=== PATIENT | male | born 1985 | race Caucasian/White ===

== ENCOUNTER → 2017-05-05 14:34 | Outpatient (CLI) | payer BC | END | disposition home or self-care (01) | LOC: D.MRI 14:30 | DX: R42 Dizziness and giddiness (principal); R41.0 Disorientation, unspecified; R51 Headache; H53.8 Other visual disturbances; R20.0 Anesthesia of skin ==

== ENCOUNTER → 2017-06-03 10:27 | Outpatient (CLI) | payer BC ==
--- NOTE | 2017-06-06 07:02 | EEG ---
PATIENT:PARISA ROLDAN DATE OF SERVICE: 06/03/17 MEDICAL RECORD: [id number] DATE OF : [birth year] LOCATION: [facility] ADMISSION DATE: 06/03/17 REFERRING PHYSICIAN: INTERPRETING PHYSICIAN: GILLES DA SILVA MD DATE OF SERVICE: 06/03/[address] Pena as an outpatient. ELECTROENCEPHALOGRAM NUMBER: [id number]. DATE OF EXAMINATION: 06/03/2017 at 11:30 a.m. DATE OF : 1985 TECHNICAL DATA: This electroencephalographic recording consists of approximately 20 minutes of data collection utilizing the international 10/20 system of electrode placement and both referential and non-referential montages. Sixteen channels of electrocerebral recording are accompanied by a 17th channel dedicated to the electrocardiographic rhythm and 2 channels of electromyographic recording. Recording is performed in the awake and drowsy states utilizing activation by hyperventilation and photic stimulation. ELECTROENCEPHALOGRAPHIC DATA: The awake state comprises approximately 60% of the recorded electrocerebral activity. Electromyographic artifact is prominent and rapid eye movements are seen. The posterior dominant background consists of a symmetric, semi-arrhythmic, waxing and waning 10-11 Hz alpha activity which is suppressed by eye opening. The drowsy state comprises the remaining portion of the recorded electrocerebral activity. Electromyographic artifact is only mildly diminished. Rapid eye movements are not seen. The posterior dominant background is relatively suppressed. Also seen is an intermittent irregular generalized and symmetric 2-3 Hz delta slowing, which occurs for periods of 1-2 seconds approximately once every 1-2 pages. No abnormal or focal slowing is identified. No epileptiform discharges are seen. Hyperventilation and photic stimulation induced no abnormal change in the recorded electrocerebral activity. INTERPRETATION: Normal (awake and drowsy). This is a normal electroencephalographic recording. TRANSINT:[id number] Voice Confirmation ID: [id number] DOCUMENT ID: [id number] ELECTROENCEPHALOGRAM REPORT [id number] PARISA ROLDAN GILLES DA SILVA MD at 0702 CC: [id number] DICTATION DATE: 06/04/17 0657 CURTAIN ROLLER ASSEMBLER: 06/04/17 0738 DEP CLI 06/03/17 [place] [address]
== END | disposition home or self-care (01) ==
LOC: D.CN 10:00
DX: R55 Syncope and collapse (principal)

== ENCOUNTER → 2017-06-17 09:19 | Outpatient (CLI) | payer BC ==
--- NOTE | 2017-06-18 16:56 | EC ---
PATIENT:PARISA ROLDAN DATE OF SERVICE: 06/17/17 SEX: M MEDICAL RECORD: [id number] DATE OF : [birth year] LOCATION:[facility] AGE OF PATIENT: 31 ADMISSION DATE: 06/17/17 REFERRING PHYSICIAN: INTERPRETING PHYSICIAN: MAX MCKEON MD ECHOCARDIOGRAM REPORT ECHO CHARGES 4 ECHO COMPLETE CLINICAL DIAGNOSIS: SYNCOPE ASSESS WITH BUBBLE STUDY ECHOCARDIOGRAPHIC MEASUREMENTS (adult normal given) AC root (d.<3.7cm) 3.5 cm LV Septum d (<1.2 cm> 1.2 cm Valve Excursion 1.9 cm LV Septum (systole) 1.5 cm Left Atria (s.<4.0cm> 3.6 cm LVPW d(<1.2cm) 1.1 cm RV (d.<2.3cm) 3.6 cm LVPW (sytole) 1.5 cm LV diastole(<5.6CM) 4.5 cm MV E-F(>70mm/sec) cm LV systole 2.8 cm LVOT Diameter 2.1 cm MV exc.(>10mm) 1.9 cm Est.ejection fraction (50-75%) % Pericardial Effusion N DOPPLER: LVIT cm/sec A 59.0 cm/sec E 86.0 cm/sec LA cm/sec RVSP 36 mmHg LVOT 130 cm/sec AOP1/2T m/s Asc. Ao 149 cm/sec RVOT 88 cm/sec RA cm/sec PA 113 cm/sec AV Gradient Peak 8.89 mmHg AV Mean 4.26 mmHg AV Area 3.1 cm MV Gradient Peak 2.89 mmHg MV Mean 1.13 mmHg MV Area cm COMMENTS: Health Program Manager: Alana TEE Planisher: Alana Peace TAPE# PACS DATE OF SERVICE: 06/17/2017 PROCEDURE: Echocardiogram FINDINGS: 1. Left ventricular chamber size is within normal limits. Left ventricular systolic function is normal. Overall ejection fraction estimated at 60%. 2. Left atrium, right atrium, and right ventricular chamber sizes are within normal limits. 3. Valvular structures have normal structure and motion. ECHOCARDIOGRAM REPORT [id number] PARISA ROLDAN 4. Doppler interrogation only reveals mild tricuspid regurgitation. No other valvular insufficiency or stenosis, pulmonary systolic pressure is normal estimated at 36 mmHg. 5. No evidence of pericardial effusion or left ventricular thrombus. 6. Bubble study was performed. There is no evidence of left to right or right to left shunt. TRANSINT:[id number] Voice Confirmation ID: [id number] DOCUMENT ID: [id number] MAX MCKEON MD at 1656 CC: [id number] DICTATION DATE: 06/17/17 1331 COUNTY AGENT: 06/17/17 1341 DEP CLI 06/17/17 [address] [place] [address]
[2017-06-28 13:13] LABS: 5HIAA - UR 0.5 mg/L (Undefined)
== END | disposition home or self-care (01) ==
LOC: D.ECHO 09:19
PROVIDERS: Psychiatry & Neurology Neurology
DX: R55 Syncope and collapse (principal)

== ENCOUNTER 2018-03-17 15:40 | Emergency (ER) | payer BC ==
[~2018-03-17] VITALS: Ht 188 cm; Wt 92.7 kg
[2018-03-17 15:47] VITALS: Ht 188 cm; Wt 92.7 kg
[2018-03-17 16:12] LABS: BASOPHILS 0.2 % (0-2); EOSINOPHILS 0.4 % (0-7); HEMATOCRIT 45.1 % (42.0-54.0); HEMOGLOBIN 15.9 g/dL (13.5-17.5); IMMATURE GRANULOCYTES 0.3 % (0-5); MCHC 35.3 g/dL (31.0-37.0); MCV 82.3 fL (80.0-100.0); MONOCYTES 5.4 % (2-11); NEUTROPHILS 63.7 % (40-80); PLATELET COUNT 220 10x3/uL (130-400); RBC 5.48 10x6/uL (4.20-6.10); RDW 12.8 % (11.5-14.5); WBC 12.9 10x3/uL (4.8-10.8)
[2018-03-17 16:20] LABS: COLOR STRAW (YELLOW)
[2018-03-17 16:21] LABS: APPEARANCE CLEAR (CLEAR); BILIRUBIN NEGATIVE (NEGATIVE); GLUCOSE NEGATIVE (NEGATIVE); KETONE NEGATIVE (NEGATIVE); NITRITE NEGATIVE (NEGATIVE); PROTEIN NEGATIVE (NEGATIVE); UROBILINOGEN NORMAL (NORMAL)
[2018-03-17 16:52] LABS: UDS - AMPHET NEGATIVE QUAL (NEGATIVE); UDS - BARB NEGATIVE QUAL (NEGATIVE); UDS - BENZO NEGATIVE QUAL (NEGATIVE); UDS - COCAINE NEGATIVE QUAL (NEGATIVE); UDS - OPIATE POSITIVE QUAL (NEGATIVE); UDS - PCP NEGATIVE QUAL (NEGATIVE); UDS - THC NEGATIVE QUAL (NEGATIVE)
[2018-03-17 16:59] LABS: ALBUMIN 4.1 g/dL (3.4-5.0); ALKALINE PHOSPHATASE 94 U/L (46-116); ALT (SGPT) 22 U/L (10-68); BILIRUBIN - TOTAL 0.35 mg/dL (0.2-1.3); CALC OSMOLALITY 280 mosm/kg (275-300); CALCIUM 9.2 mg/dL (8.5-10.1); CARBON DIOXIDE 29.3 mmol/L (21.0-32.0); CHLORIDE - SERUM 102 mmol/L (98-107); CREATININE - SERUM 1.1 mg/dL (0.6-1.3); GLUCOSE 75 mg/dL (74-106); PROTEIN - SERUM 8.2 g/dL (6.4-8.2); SODIUM 141 mmol/L (136-145); UREA NITROGEN 14 mg/dL (7-18); eGFR NON AFRICAN AMERICAN 81 mL/min (90-120)
[2018-03-17 19:26] VITALS: BP 113/69
== END 2018-03-17 19:22 | disposition home or self-care (01) ==
LOC: D.ER 15:40
PROVIDERS: Family Medicine
DX: M79.1 Myalgia (principal); G40.909 Epilepsy, unspecified, not intractable, without status epilepticus; F17.200 Nicotine dependence, unspecified, uncomplicated

== ENCOUNTER 2019-04-11 13:01 | Inpatient (IN) | payer BC ==
[~2019-04-11] VITALS: Ht 188 cm; Wt 81.6 kg
[2019-04-11 15:22] VITALS: BP 107/68
--- NOTE | 2019-04-11 15:46 | MORECARE ---
CASE MANAGEMENT DISCHARGE SUMMARY PATIENT: PARISA RIVAS UNIT: [id number] ADM DATE: 04/11/19 AGE: 33 : [birth year] SEX: M ROOM/BED: D.1202 AUTHOR: JUAN CARLOS JONES PHYSICIAN: REFERRING PHYSICIAN: ALENA QUESADA DO DATE OF SERVICE: 04/11/19 Discharge Plan Patient Name: PARISA RIVAS [facility] [facility] 1985 Planned Disposition: Home Anticipated Discharge Date: 04/13/19 Discharge Date: Expected LOS: 2 Initial Reviewer: [email or web address] Initial Review Date: 04/11/2019 Generated: 04/11/19 4:46 pm DCPIA - Discharge Planning Initial Assessment Updated by [email or web address]: Hollie Baker on 04/11/19 3:45 pm * Is the patient Alert and Oriented? Yes * How many steps to enter\exit or inside your home? 10 * PCP Dr. Pena * Pharmacy [facility] * Preadmission Environment Home with Family * ADLs Independent * Equipment None * Other Equipment Cane * List name and contact numbers for known caregivers / representatives who currently or will assist patient after discharge: Qing Rivas - - [phone] * Verbal permission to speak to the caregivers and representatives has been obtained from the patient. Yes * Community resources currently utilized None * Additional services required to return to the preadmission environment? No * Can the patient safely return to the preadmission environment? Yes * Has this patient been hospitalized within the prior 30 days at any hospital? No Patient Name: PARISA RIVAS Page [id number] at 1546 All edits/amendments must be made on the electronic document DICTATION DATE: 04/11/19 154 FOUNDRY SUPERVISOR: ANTHONY 04/11/19 154 RPT#: [id number] DC DATE: STATUS: ADM IN [facility] [address] [place] [address] END OF REPORT
--- NOTE | 2019-04-11 15:53 | MORECARE ---
CASE MANAGEMENT DISCHARGE SUMMARY PATIENT: PARISA RIVAS UNIT: [id number] ADM DATE: 04/11/19 AGE: 33 : [birth year] SEX: M ROOM/BED: D.1202 AUTHOR: KAREN,DOC PHYSICIAN: REFERRING PHYSICIAN: ALENA QUESADA DO DATE OF SERVICE: 04/11/19 Discharge Plan Patient Name: PARISA RIVAS Facility: [facility]:[place] : 1985 Planned Disposition: Home Anticipated Discharge Date: 04/13/19 Discharge Date: Expected LOS: 2 Initial Reviewer: [email or web address] Initial Review Date: 04/11/2019 Generated: 04/11/19 4:53 pm Comments DCP- Discharge Planning Updated by [email or web address]: Hollie Baker on 04/11/19 2:[address] Patient Name: PARISA RIVAS Admission Status: Elective Accout number: [id number] Admission Date: 04-11-2019 : 1985 Admission Diagnosis: Attending: ALENA QUESADA Current LOS: 1 Anticipated DC Date: 04-13-2019 Planned Disposition: Home Primary Insurance: [employer] OUT OF STATE Discharge Planning Communication: DC PLAN: Return home with independently. DC NEEDS: Unsure of dc needs at this time. CM met with patient to complete initial dc planning assessment. CM educated patient on the CM role and verbal consent given by patient to complete assessment. CM verified patient's address, phone number, and emergency contact phone numbers. Patient lives at home with his and reports he is independent in his meds. At discharge patient plans to return home and feels this is a safe discharge. CM discussed availability of home health, rehab services, and medical equipment. Patient denied known discharge needs at this time. Patient reports he will drive himself if able or his will transport him home at time of discharge. CM will continue to follow and will assist as needed with dc plans/needs. Lens Blank Gauger: Hollie Baker RN, [facility] DCPIA - Discharge Planning Initial Assessment Updated by [email or web address]: Hollie Baker on 04/11/19 3:45 pm * Is the patient Alert and Oriented? Yes * How many steps to enter\exit or inside your home? 10 * PCP Dr. Pena * Pharmacy [facility] * Preadmission Environment Home with Family * ADLs Independent * Equipment None * Other Equipment Cane * List name and contact numbers for known caregivers / representatives who currently or will assist patient after discharge: Qing Rivas - - [phone] * Verbal permission to speak to the caregivers and representatives has been obtained from the patient. Yes * Community resources currently utilized None * Additional services required to return to the preadmission environment? No * Can the patient safely return to the preadmission environment? Yes * Has this patient been hospitalized within the prior 30 days at any hospital? No Last DP export: 04/11/19 2:46 p Patient Name: PARISA RIVAS Page [id number] at 1553 All edits/amendments must be made on the electronic document DICTATION DATE: 04/11/191552 WREATH INSPECTOR: ANTHONY 04/11/191552 RPT#: [id number] DC DATE: STATUS: ADM IN [facility] [address] [place] [address] END OF REPORT
[2019-04-11 17:32] LABS: ALBUMIN 3.5 g/dL (3.4-5.0); BILIRUBIN - DIRECT 0.05 mg/dL (0.00-0.30); BILIRUBIN - INDIRECT 0.46 mg/dL (0.00-1.00); BILIRUBIN - TOTAL 0.51 mg/dL (0.2-1.3); CALCIUM 8.8 mg/dL (8.5-10.1)
[2019-04-11 19:47] VITALS: BP 100/66
[2019-04-11 23:46] VITALS: BP 97/57
[2019-04-12 04:00] VITALS: BP 96/67
[2019-04-12 06:25] LABS: ALBUMIN 3.1 g/dL (3.4-5.0); ALKALINE PHOSPHATASE 81 U/L (46-116); ALT (SGPT) 24 U/L (10-68); BILIRUBIN - TOTAL 0.58 mg/dL (0.2-1.3); CALC OSMOLALITY 284 mosm/kg (275-300); CALCIUM 8.8 mg/dL (8.5-10.1); CARBON DIOXIDE 26.2 mmol/L (21.0-32.0); CHLORIDE - SERUM 106 mmol/L (98-107); CREATININE - SERUM 0.9 mg/dL (0.6-1.3); MAGNESIUM - SERUM 2.5 mg/dL (1.8-2.4); POTASSIUM - SERUM 4.1 mmol/L (3.5-5.1); PROTEIN - SERUM 6.1 g/dL (6.4-8.2); SODIUM 141 mmol/L (136-145); UREA NITROGEN 7 mg/dL (7-18); eGFR NON AFRICAN AMERICAN > 90 mL/min (90-120)
[2019-04-12 06:27] LABS: GLUCOSE 208 mg/dL (74-106)
[2019-04-12 07:49] LABS: BASOPHILS 0.2 % (0-2); EOSINOPHILS 1.3 % (0-7); HEMATOCRIT 40.7 % (42.0-54.0); IMMATURE GRANULOCYTES 0.1 % (0-5); LYMPHOCYTES 34.2 % (15-50); MCH 29.2 pg (26.0-34.0); MCHC 34.4 g/dL (31.0-37.0); MCV 84.8 fL (80.0-100.0); MEAN PLATELET VOLUME 12.3 fL (7.4-10.4); MONOCYTES 7.4 % (2-11); NEUTROPHILS 56.8 % (40-80); PLATELET COUNT 201 10x3/uL (130-400); RDW 12.9 % (11.5-14.5); WBC 8.6 10x3/uL (4.8-10.8)
[2019-04-12] MEDS ORDERED: ADDERALL 30 MG30 MG PO (08:14)
[2019-04-12] MEDS ORDERED: HYDROCODON-ACE1 EA10 PO (08:14)
[2019-04-12] MEDS ORDERED: NEURONTIN 400400 MG PO (08:15)
[2019-04-12] MEDS ORDERED: OMEPRAZOLE40 MG PO (08:15)
[2019-04-12 08:37] VITALS: BP 105/65
[2019-04-12 09:36] VITALS: Ht 188 cm; Wt 81.6 kg
[2019-04-12] MEDS ORDERED: FLORAJEN3 CAPS460 MG PO (10:24)
[2019-04-12] MEDS ORDERED: QUESTRAN PACKET PO (10:24)
[2019-04-12] MEDS ORDERED: PROTONIX40 MG PO (10:25)
[2019-04-12] MEDS ORDERED: LOPERAMIDE HCL2 MG PO (10:25)
[2019-04-12] MEDS ORDERED: CARAFATE1 G PO (10:25)
[2019-04-12] MEDS ORDERED: FLAGYL500 MG PO (10:26)
--- NOTE | 2019-04-12 17:00 | MORECARE ---
CASE MANAGEMENT DISCHARGE SUMMARY PATIENT: PARISA RIVAS UNIT: [id number] ADM DATE: 04/11/19 AGE: 33 : [birth year] SEX: M ROOM/BED: D.1202 AUTHOR: JUAN CARLOS JONES PHYSICIAN: REFERRING PHYSICIAN: ALENA QUESADA DO DATE OF SERVICE: 04/12/19 Discharge Plan Patient Name: PARISA RIVAS Facility: [facility]:[place] : 1985 Planned Disposition: Home Anticipated Discharge Date: 04/13/19 Discharge Date: 04/12/2019 Expected LOS: 2 Initial Reviewer: [email or web address] Initial Review Date: 04/11/2019 Generated: 04/12/19 5:59 pm DCP- Discharge Planning Updated by [email or web address]: Hollie Baker on 04/11/19 2:[address] Patient Name: PARISA RIVAS Admission Status: Elective Accout number: [id number] Admission Date: 04-11-2019 : 1985 Admission Diagnosis: Attending: ALENA QUESADA Current LOS: 1 Anticipated DC Date: 04-13-2019 Planned Disposition: Home Primary Insurance: [employer] OUT OF STATE Discharge Planning Communication: DC PLAN: Return home with independently. DC NEEDS: Unsure of dc needs at this time. CM met with patient to complete initial dc planning assessment. CM educated patient on the CM role and verbal consent given by patient to complete assessment. CM verified patient's address, phone number, and emergency contact phone numbers. Patient lives at home with his and reports he is independent in his meds. At discharge patient plans to return home and feels this is a safe discharge. CM discussed availability of home health, rehab services, and medical equipment. Patient denied known discharge needs at this time. Patient reports he will drive himself if able or his will transport him home at time of discharge. CM will continue to follow and will assist as needed with dc plans/needs. Industrial Recruiter: Hollie Baker RN, [facility] DCPIA - Discharge Planning Initial Assessment Updated by [email or web address]: Hollie Baker on 04/11/19 3:45 pm * Is the patient Alert and Oriented? Yes * How many steps to enter\exit or inside your home? 10 * PCP Dr. Pena * Pharmacy [facility] * Preadmission Environment Home with Family * ADLs Independent * Equipment None * Other Equipment Cane * List name and contact numbers for known caregivers / representatives who currently or will assist patient after discharge: Qing Rivas - - [phone] * Verbal permission to speak to the caregivers and representatives has been obtained from the patient. Yes * Community resources currently utilized None * Additional services required to return to the preadmission environment? No * Can the patient safely return to the preadmission environment? Yes * Has this patient been hospitalized within the prior 30 days at any hospital? No Last DP export: 04/11/19 2:53 p Patient Name: PARISA RIVAS Page 22488 at 1700 All edits/amendments must be made on the electronic document DICTATION DATE: 04/12/191658 HEAD ANIMAL TRAINER: ANTHONY 04/12/191658 RPT#: [id number] DC DATE:04/12/19 STATUS: DIS IN [facility] [address] [place] [address] END OF REPORT
== END 2019-04-12 11:23 | disposition home or self-care (01) | DRG 392 ==
LOC: D.M3 13:01
PROVIDERS: Family Medicine; Internal Medicine Gastroenterology; ADMIT Family Medicine; ATTEND Family Medicine
PROC: 0DB68ZX Excision of Stomach, Via Natural or Artificial Opening Endoscopic, Diagnostic (ICD-10-PCS; 2019-04-12)
PROC: 0D758ZZ Dilation of Esophagus, Via Natural or Artificial Opening Endoscopic (ICD-10-PCS; 2019-04-12)
PROC: 0DB58ZX Excision of Esophagus, Via Natural or Artificial Opening Endoscopic, Diagnostic (ICD-10-PCS; principal; 2019-04-12 07:04)
DX: K20.9 Esophagitis, unspecified (principal); K92.1 Melena; R11.2 Nausea with vomiting, unspecified; E86.0 Dehydration; R19.7 Diarrhea, unspecified; K22.2 Esophageal obstruction; K29.70 Gastritis, unspecified, without bleeding; R56.9 Unspecified convulsions

== ENCOUNTER 2020-02-09 08:00 | Day surgery (SDC) | payer MEDICAID ==
[~2020-02-09] VITALS: Ht 188 cm; Wt 79.4 kg
[~2020-02-09 08:00] MED LIST: ADDERALL 30 MG30 MG PO; CARAFATE1 G PO; FLAGYL500 MG PO; FLORAJEN3 CAPS460 MG PO; HYDROCODON-ACE1 EA10 PO; LOPERAMIDE HCL2 MG PO; NEURONTIN 400400 MG PO; OMEPRAZOLE40 MG PO; PROTONIX40 MG PO; QUESTRAN PACKET PO
[2020-02-09 08:41] VITALS: BP 102/62; Ht 188 cm; Wt 79.4 kg
--- NOTE | 2020-02-09 09:37 | NUR ---
0930-BLOCK COMPLETE. O2 ON AT 2L PER NC. MONITORS IN PLACE. O2 SAT 100%, PULSE IS 78, RESP 18. GIRLFRIEND AT BEDSIDE. IV PATENT. PATIENT SOMNOLENT BUT AROUSES TO VERBAL.
[2020-02-09] MEDS ORDERED: PERCOCET 10-321 EAC1 PO (11:44)
[2020-02-09] MEDS ORDERED: VISTARIL50 MG PO (11:45)
[2020-02-09] MEDS ORDERED: ZOFRAN ODT4 MG/UDTAB PO (11:45)
--- NOTE | 2020-02-09 12:27 | NUR ---
ASSUMED CARE FOR THIS PT AT 1220. PT IN TEARS C/O PAIN ON HIS KNEE CAP. LAST DOSE OF PAIN MEDICATION PROVIDED. REPOSITIONED PT. WILL CONTINUE TO TRY AND HELP RELIEVE THE PAIN.
--- NOTE | 2020-02-09 12:58 | NUR ---
1245-RECD FROM PACU. ALERT. IV PATENT. RESP WITH EASE. CRYING/SHAKKING/HURTING/UPSET.
--- NOTE | 2020-02-09 20:57 | OP ---
PATIENT NAME: PARISA RIVAS MEDICAL RECORD: [id number] :[birth year] LOCATION:[facility] ADMISSION DATE: SURGEON: TEJA COLE DO DATE OF OPERATION: 02/09/2020 PROCEDURE PERFORMED: Right knee arthroscopy with ACL debridement. PREOPERATIVE DIAGNOSIS: Right knee anterior cruciate ligament partial tear. POSTOPERATIVE DIAGNOSIS: Right knee anterior cruciate ligament partial tear. INDICATIONS: Mr. Rivas is a 34-year-old male who has had knee pain for quite some time and he is walking with a cane and got an MRI, which showed a partial ACL tear. I informed him that we are going to look at it and see if we can just debride it. He had good enough fibers left for it. We would not do a whole ACL, but would be prepared to do reconstruction. He was aware of that and aware of the risks including infection, bleeding, damage to nerves and vessels, need for further surgery, continued pain, fracture, blood clots, and even and he signed the consent. SURGEON: Teja Cole DO DESCRIPTION OF PROCEDURE: The patient was taken to the operative suite, laid in the supine position, after given a block by anesthesia in preop area, given 2 grams Ancef preoperatively. The right lower extremity was then prepped and draped. After he was sedated, LMA was placed. Right lower extremity was prepped and draped in sterile fashion. A timeout was performed and everyone was in agreement with correct side, site, patient and procedure. We then began by opening the lateral portal with an 11-blade scalpel and entering the trocar into the joint and then entered the camera through the trocar, inspected the suprapatellar pouch and loose body seen in it; however, was quite inflamed. There was no chondromalacia seen on the patella. The medial gutter and lateral gutters were also inflamed, but there were no loose bodies in them. We then flexed the knee down and established a medial portal with an 18-gauge spinal needle and 11-blade scalpel and brought in a trocar and then a probe. I then probed the medial meniscus and no tear seen in it and probed the ACL and saw the partial tear; however, he still had greater than 75% of its fibers intact both at the tibial insertion and the femoral insertion. I then omxfuv-dl-yual'ed the leg and entered the lateral compartment and probed the lateral meniscus and no tear seen in it either. I then went to the posterior aspect of the knee through the notch and no loose body seen in it. I then probed the ACL some more and again noted that there are hardly any fibers taken maybe 25%. I then debrided that those fibers that were torn and some more of notch and some part of the fat pad. I then removed the scope and removed the shaver and the probe and then turned off the water and turn suction on removing excess fluid and then performed a drawer and Yulisa's test and he had good strong endpoints with both of them after the debridement and then Imer Lock, certified midwife closed the portal sites with 4-0 Monocryl in inverted interrupted fashion. Steri-Strips, Adaptic, 4 x 4's ABD, Webril, Adama wrap, and knee immobilizer then placed on the patient. He was awaken and taken to recovery in stable condition. BLOOD LOSS: Minimal. COMPLICATIONS: None. OPERATIVE REPORT [id number] PARISA RIVAS The tourniquet was up for 10 minutes after raising the legs and was let down prior to putting the bandage on. Bleeding was minimal. TRANSINT:[id number] Voice Confirmation ID: [id number] DOCUMENT ID: [id number] TEJA COLE DO at 2052 CC: [id number] DICTATION DATE: 02/09/20 1150 FACING CUTTING MACHINE OPERATOR: 02/09/202033 [facility] 02/09/20 [facility] [address] [place] [id number]
== END 2020-02-09 13:50 | disposition home or self-care (01) ==
LOC: D.OPS 08:00 → D.PAN 13:45 → D.OPS 13:45
PROVIDERS: ATTEND Orthopaedic Surgery
DX: S83.511A Sprain of anterior cruciate ligament of right knee, initial encounter (principal); X58.XXXA Exposure to other specified factors, initial encounter

== ENCOUNTER 2020-02-19 13:48 | Observation (INO) | payer MEDICAID ==
[~2020-02-19] VITALS: Ht 188 cm; Wt 79.1 kg
[~2020-02-19 13:48] MED LIST changes: +PERCOCET 10-321 EAC1 PO; +VISTARIL50 MG PO; +ZOFRAN ODT4 MG/UDTAB PO
[2020-02-19 15:36] LABS: CALC OSMOLALITY 279 mosm/kg (275-300); CALCIUM 9.5 mg/dL (8.5-10.1); CARBON DIOXIDE 25.7 mmol/L (21.0-32.0); CHLORIDE - SERUM 102 mmol/L (98-107); CREATININE - SERUM 1.4 mg/dL (0.6-1.3); GLUCOSE 144 mg/dL (74-106); POTASSIUM - SERUM 3.6 mmol/L (3.5-5.1); SODIUM 138 mmol/L (136-145); UREA NITROGEN 14 mg/dL (7-18); eGFR NON AFRICAN AMERICAN 61 mL/min (90-120)
[2020-02-19 15:44] LABS: ALKALINE PHOSPHATASE 96 U/L (30-120); ALT (SGPT) 40 U/L (10-68); AMYLASE - SERUM 37 U/L (25-115); LIPASE 60 U/L (73-393); PROTEIN - SERUM 8.1 g/dL (6.4-8.2)
[2020-02-19 15:49] LABS: TROPONIN-I < 0.017 ng/mL (0.000-0.060)
[2020-02-19 16:09] LABS: HEMATOCRIT 46.4 % (42.0-54.0); HEMOGLOBIN 15.6 g/dL (13.5-17.5); MCH 28.6 pg (26.0-34.0); MCHC 33.6 g/dL (31.0-37.0); MEAN PLATELET VOLUME 11.2 fL (7.4-10.4); PLATELET COUNT 300 10x3/uL (130-400); RBC 5.46 10x6/uL (4.20-6.10)
[2020-02-19 16:12] LABS: BILIRUBIN NEGATIVE (NEGATIVE); GLUCOSE NEGATIVE (NEGATIVE); KETONE NEGATIVE (NEGATIVE); NITRITE NEGATIVE (NEGATIVE); UROBILINOGEN NORMAL (NORMAL)
[2020-02-19 16:27] LABS: EOSINOPHILS 3 % (0-7); LYMPHOCYTES 12 % (15-50); MONOCYTES 2 % (2-11); NEUTROPHILS 83 % (40-80); PLATELET ESTIMATE NORMAL
--- NOTE | 2020-02-19 16:44 | NUR ---
PT DENIES ABD PAIN AT THIS TIEM. RATES PAIN TO RIGHT KNEE 10/10
[2020-02-19 17:24] VITALS: BP 117/76
--- NOTE | 2020-02-19 19:10 | NUR ---
PATIENT RESTING IN BED WITH NO S/S OF DISTRESS. BED IN LOWEST POSITION AND CALL LIGHT WITHIN REACH. ENCOURAGED THE PATIENT TO CALL IF HE HAS NEEDS. WILL CONTINUE TO MONITOR.
[2020-02-19 20:00] VITALS: BP 102/63
[2020-02-19 20:12] VITALS: BP 121/73; Ht 188 cm; Wt 79.1 kg
[2020-02-19 21:11] LABS: UDS - AMPHET NEGATIVE QUAL (NEGATIVE); UDS - BARB NEGATIVE QUAL (NEGATIVE); UDS - BENZO NEGATIVE QUAL (NEGATIVE); UDS - COCAINE NEGATIVE QUAL (NEGATIVE); UDS - OPIATE POSITIVE QUAL (NEGATIVE); UDS - PCP NEGATIVE QUAL (NEGATIVE); UDS - THC POSITIVE QUAL (NEGATIVE)
--- NOTE | 2020-02-19 22:06 | NUR ---
ADMINISTERED MEDS PER ORDERS. EXPLAINED TO THE PATIENT THAT HE CAN'T HAVE ANYTHING TO EAT OR DRINK. PATIENT VERBALIZED UNDERSTANDING. ENCOURAGED PATIENT TO CALL IF HE HAS NEEDS. WILL CONTINUE TO MONITOR.
[2020-02-20] VITALS: BP 94/42
[2020-02-20 04:00] VITALS: BP 111/71
[2020-02-20 06:28] LABS: BASOPHILS 0.1 % (0-2); EOSINOPHILS 0.1 % (0-7); HEMATOCRIT 39.8 % (42.0-54.0); HEMOGLOBIN 13.2 g/dL (13.5-17.5); IMMATURE GRANULOCYTES 0.3 % (0-5); LYMPHOCYTES 21.2 % (15-50); MCH 28.6 pg (26.0-34.0); MCHC 33.2 g/dL (31.0-37.0); MCV 86.1 fL (80.0-100.0); MEAN PLATELET VOLUME 11.3 fL (7.4-10.4); MONOCYTES 8.8 % (2-11); NEUTROPHILS 69.5 % (40-80); RBC 4.62 10x6/uL (4.20-6.10); RDW 13.3 % (11.5-14.5)
[2020-02-20 06:32] LABS: PLATELET COUNT 225 10x3/uL (130-400); WBC 14.4 10x3/uL (4.8-10.8)
[2020-02-20 06:42] LABS: ALBUMIN 3.1 g/dL (3.4-5.0); ALKALINE PHOSPHATASE 76 U/L (30-120); BILIRUBIN - TOTAL 0.66 mg/dL (0.2-1.3); CALC OSMOLALITY 279 mosm/kg (275-300); CALCIUM 8.7 mg/dL (8.5-10.1); CARBON DIOXIDE 27.7 mmol/L (21.0-32.0); CHLORIDE - SERUM 107 mmol/L (98-107); GLUCOSE 99 mg/dL (74-106); MAGNESIUM - SERUM 2.6 mg/dL (1.8-2.4); PROTEIN - SERUM 6.3 g/dL (6.4-8.2); SODIUM 140 mmol/L (136-145); UREA NITROGEN 14 mg/dL (7-18)
[2020-02-20 06:43] LABS: ALT (SGPT) 28 U/L (10-68); CREATININE - SERUM 0.8 mg/dL (0.6-1.3); eGFR NON AFRICAN AMERICAN > 90 mL/min (90-120)
--- NOTE | 2020-02-20 07:41 | NUR ---
PATIENT CO OF PAIN 9 OUT OF 10. MEDS GIVEN PER EMAR. CL IN REACH. NO FURTHER NEEDS AT THIS TIME. NICOTENE PATCH PLACED ON LEFT SHOULDER.
[2020-02-20 08:41] VITALS: BP 108/71
[2020-02-20] MEDS ORDERED: PERCOCET 10-321 EAC1 PO (09:09)
[2020-02-20 12:07] VITALS: BP 96/56
--- NOTE | 2020-02-20 12:40 | NUR ---
IV THERAPY REMOVED FROM RIGHT AC WITH TIP INTACT. KNEE IMMOBILIZER ON. DISCHARGE INSTRUCTIONS GIVEN. PATIENT VERBALIZED UNDERSTANDING. CL IN REACH. WILL NOTIFY ME WHEN RIDE (FIANCEE) IS HERE.
== END 2020-02-20 13:29 | disposition home or self-care (01) ==
LOC: D.ER 13:48 → D.MS 17:17 → OBSVTIME 17:17 → D.MS 02-20 13:29
PROVIDERS: Family Medicine; ADMIT Family Medicine; ATTEND Family Medicine
DX: S82.114A Nondisplaced fracture of right tibial spine, initial encounter for closed fracture (principal); M25.561 Pain in right knee; R10.9 Unspecified abdominal pain; D72.829 Elevated white blood cell count, unspecified; N17.9 Acute kidney failure, unspecified; K21.9 Gastro-esophageal reflux disease without esophagitis; G40.909 Epilepsy, unspecified, not intractable, without status epilepticus; F98.8 Other specified behavioral and emotional disorders with onset usually occurring in childhood and adolescence; F17.203 Nicotine dependence unspecified, with withdrawal; F12.90 Cannabis use, unspecified, uncomplicated

== ENCOUNTER → 2020-05-13 14:53 | Outpatient (CLI) | payer MEDICAID ==
[2020-02-19 20:12] VITALS: BMI 22.4
== END | disposition home or self-care (01) ==
LOC: D.MRI 14:53
PROVIDERS: ATTEND Clinical Nurse Specialist Family Health
DX: M25.562 Pain in left knee (principal)